=== PATIENT | female | born 2000 | race Caucasian/White ===

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

== ENCOUNTER 2022-04-20 20:18 | Emergency (ER) | payer BC, MEDICAID, SELFPAY ==
[2022-04-20 20:31] VITALS: BP 123/83; PULSE 99; RESP 16; TEMP 36.8; O2SAT 99; BMI 35.3
== END 2022-04-20 21:13 | disposition left against medical advice (07) ==
PROVIDERS: Emergency Provider Family Medicine; PCP Nurse Practitioner Family
DX: Z53.21 Procedure and treatment not carried out due to patient leaving prior to being seen by health care provider (principal); M79.631 Pain in right forearm

== ENCOUNTER 2022-08-06 22:56 | Emergency (ER) | payer BC, MEDICAID, SELFPAY ==
[2022-08-06 22:58] VITALS: BP 144/83; PULSE 109; RESP 18; TEMP 36.9; O2SAT 99; BMI 34.3
[2022-08-06] MEDS: sodium chloride 0.9% 1,000 ML 999 ML IV (23:10)
--- NOTE | 2022-08-06 23:15 | USR_ITS ---
PROCEDURE INFORMATION: Exam: US Abdomen, Limited; Right Upper Quadrant Exam date and time: 08/06/2022 11:26 PM Age: 22 years old Clinical indication: Abdominal pain; Epigastric; Additional info: Ruq pain TECHNIQUE: Imaging protocol: Real time ultrasound of the abdomen with image documentation. Limited exam focused on the right upper quadrant. COMPARISON: US OB >= 14 weeks fetus [id number] 12/31/2020 10:44 AM FINDINGS: Liver: 14.7 cm liver. Gallbladder: Normal 2.5 mm gallbladder wall. Sonographically negative Vargas's sign suggesting no cholecystitis. Biliary ducts: 2.6 mm common bile duct. Pancreas: Pancreas partially obscured by bowel gas. Right kidney: 10.3 x 4.3 x 4.8 cm right kidney with 1.6 cm right renal cortex. US/US gall bladder [id number] IMPRESSION: Normal gallbladder.
[2022-08-06 23:26] LABS: Basophils % 0.2 %; Eosinophils # 0.5 10^3/uL (0.0-0.8); Eosinophils % 3.1 %; Hematocrit 46.7 % (37.0-47.0); Lymphocytes # 3.2 10^3/uL (1.5-6.5); Lymphocytes % 22.5 %; Mean Corpuscular HGB Conc 32.1 g/dL (30.0-36.0); Mean Corpuscular Hemoglobin 29.2 pg (28.0-34.0); Mean Corpuscular Volume 90.9 fl (81-99); Mean Platelet Volume 9.5 fL (7.4-10.4); Monocytes # 0.6 10^3/uL (0.2-0.9); Neutrophils # 10.05 10^3/uL (1.8-8.0); Neutrophils % 69.9 %; Nucleated Red Blood Cells % 0 %; Platelet Count 408 10^3/cmm (130-400); Red Blood Count 5.14 10^6/uL (4.1-5.3); White Blood Count 14.4 10^3/uL (4.5-13.0)
[2022-08-06] MEDS: HYDROmorphone 1 mg/mL INJ 1 mL IVP (23:31)
[2022-08-06] MEDS: ketorolac 30 mg/mL INJ 15 MG IVP (23:32)
--- NOTE | 2022-08-06 23:33 | W.ED.ABDPA2 ---
HPI - Abdominal Pain General: Chief Complaint: Abdominal Pain Stated Complaint: ABD PAIN Time Seen by Provider: 08/06/22 23:03 Source: patient History of Present Illness: 22-year-old female presenting with around 5 hours of right upper quadrant pain radiating into her back. She has vomited multiple times. No fever. No diarrhea. She had this pain about a week ago she notes, but it went away on its own at that point. No prior belly surgeries. She states that she is not . In route by EMS she has had 1 mg of Dilaudid, 12.5 mg of promethazine, and 4 mg of Zofran. MD elicited complaint: abdominal pain Pertinent past history: none Onset (ago): hour(s) Pain Consistency: constant Location: RUQ Severity: severe Quality: stabbing and aching Radiation: back Associated Symptoms: Reports bloating, nausea and vomiting; Denies diarrhea, fever(s), hematemesis, loose stools and melena Treatments prior to arrival: other Related Data: Date of Last Menstrual Period: 08/05/22 Review of Systems Const: Denies: fever(s) Eyes: Denies: change in vision Card: Denies: chest pain or palpitations Resp: Denies: dyspnea, productive cough, non-productive cough or wheezing GI: Reports: abdominal pain, nausea, vomiting and bloating; Denies: hematemesis, diarrhea or melena : Denies: difficulty voiding Skin/Breast: Denies: rash Neuro: Denies: headache(s), weakness in extremities, dizziness or confusion PFS ED PFSH: Medical History Anxiety used to see Spurling and took several meds that never really worked for her. Asthma No pertinent past medical history neghx: htn,dm,thyroid,dvt/pe,herpes ---denies partner with herpes PCP: Polycystic ovarian syndrome Surgical History S/P tonsillectomy and adenoidectomy Family History Mother Hypertension Grandfather Hypertension Maternal Diabetes Maternal and Paternal Grandmother Hypertension Maternal Colon cancer Maternal dx age---50's Diabetes Maternal and Paternal Thyroid disease Paternal Father No problems noted. Denies family history of Ovarian cancer Heart disease Hypercholesteremia Breast cancer Uterine cancer Stroke Social History Smoking and tobacco status: current every day smoker cigarettes [ Other cigarette details: 1 cigarette/day] Alcohol intake: former Former alcohol use details: 07/31/2020 Other details last substance use: marijuana use daily prior to Female Reproductive History: Date of last menstrual period: 08/05/22 Physical Exam Const: GENERAL APPEARANCE: cooperative and ill appearing (Mildly); not comfortable and not frail appearing HENMT: COMMON NORMALS: normocephalic, atraumatic and Normal external nose present HEAD & SCALP: normocephalic and atraumatic FACE & SINUS: normal facial exam and face symmetric NOSE: Normal external nose present Eye: COMMON NORMALS: Equal, round and reactive pupils present and EOMs intact bilaterally PUPIL: Yes Equal, round and reactive pupils present Neck/C-Spine: GENERAL: Yes trachea midline Chest: CHEST: Yes Symmetrical chest wall rise Resp: COMMON NORMALS: normal respiratory effort, No retractions, No use of accessory muscles and clear to auscultation bilaterally AUSCULTATION: clear to auscultation bilaterally Cardio: COMMON NORMALS: regular rate and regular rhythm RATE: regular rate RHYTHM: regular rhythm GI: COMMON NORMALS: Normal to inspection, nondistended, normoactive bowel sounds present and Soft to palpation PALPATION: Yes Soft to palpation and Yes Tenderness to palpation present (GI) Details: RUQ Extremity: COMMON NORMALS: no pedal edema Neuro: BERONICA COMA SCALE: document GCS findings Eastern coma scale eye opening: Spontaneous Eastern coma scale verbal response: Orientated Eastern coma scale motor response: Obey commands Beronica coma scale total score: 15 SENSORY EXAM: Yes extremities (intact) Psych: COMMON NORMALS: speech normal SPEECH: Yes normal speech Skin: COMMON NORMALS: no rashes or lesions noted GENERAL SKIN EXAM: no rashes or lesions noted Course Vital Signs: Vital signs: Vital Signs Temperature 98.5 F 08/06/22 22:58 Pulse Rate 100 08/07/22 01:05 Respiratory Rate 16 08/07/22 01:05 Blood Pressure 118/76 08/07/22 01:05 Pulse Oximetry 99 08/07/22 01:05 Oxygen Delivery Me thod 08/06/22 22:58 MDM - Abdominal Pain Medical Decision Making Leukocytosis of 14. She is not . CRP is mildly elevated as well. Ultrasound the gallbladder is normal. Belly CT shows mild mesenteric lymphadenopathy. She will be treated symptomatically Lab Data 08/06/22 23:15 08/06/22 23:15 Labs/Radiology: Radiology Impressions Gallbladder Ultrasound 08/06/22 23:15 IMPRESSION: Normal gallbladder. Abdomen/Pelvis CT 08/06/22 23:57 IMPRESSION: Mild mesenteric lymphadenopathy most consistent with reactive process. Six-month follow-up exam may be helpful rule out worsening adenopathy. Laboratory Results WBC 14.4 10^3/uL (4.5-13.0) H 08/06/22 23:15 RBC 5.14 10^6/uL (4.1-5.3) 08/06/22 23:15 Hgb 15.0 g/dL (11.5-15.3) 08/06/22 23:15 Hct 46.7 % (37.0-47.0) 08/06/22 23:15 MCV 90.9 fl (81-99) 08/06/22 23:15 MCH 29.2 pg (28.0-34.0) 08/06/22 23:15 MCHC 32.1 g/dL (30.0-36.0) 08/06/22 23:15 RDW 13.0 % (12.1-15.1) 08/06/22 23:15 Plt Count 408 10^3/cmm (130-400) H 08/06/22 23:15 MPV 9.5 fL (7.4-10.4) 08/06/22 23:15 Neut % (Auto) 69.9 % 08/06/22 23:15 Lymph % (Auto) 22.5 % 08/06/22 23:15 [place] % (Auto) 4.0 % 08/06/22 23:15 Eos % (Auto) 3.1 % 08/06/22 23:15 Baso % (Auto) 0.2 % 08/06/22 23:15 Neut # (Auto) 10.05 10^3/uL (1.8-8.0) H 08/06/22 23:15 Lymph # (Auto) 3.2 10^3/uL (1.5-6.5) 08/06/22 23:15 [place] # (Auto) 0.6 10^3/uL (0.2-0.9) 08/06/22 23:15 Eos # (Auto) 0.5 10^3/uL (0.0-0.8) 08/06/22 23:15 Baso # (Auto) 0.0 10^3/uL (0.0-0.1) 08/06/22 23:15 Nucleated RBC % (auto) 0 % 08/06/22 23:15 Nucleated RBCs # 0.0 /100WBC 08/06/22 23:15 Sodium 138 mmol/L (136-145) 08/06/22 23:15 Potassium 3.4 mmol/L (3.5-5.1) L 08/06/22 23:15 Chloride 104 mmol/L (98-107) 08/06/22 23:15 Carbon Dioxide 22 mmol/L (22-29) 08/06/22 23:15 Anion Gap 15.4 (5-19) 08/06/22 23:15 BUN 6 mg/dL (6-20) 08/06/22 23:15 Creatinine 0.5 mg/dL (0.5-0.9) 08/06/22 23:15 GFR Calculation 157.3 mL/min (90-130) H 08/06/22 23:15 Glucose 102 mg/dL (65-115) 08/06/22 23:15 Calculated Osmolality 284 mOsm/kg (285-295) L 08/06/22 23:15 Calcium 8.4 mg/dL (8.5-10.5) L 08/06/22 23:15 Total Bilirubin 0.2 mg/dL (0.15-1.2) 08/06/22 23:15 AST 17 U/L (0-32) 08/06/22 23:15 ALT 24 U/L (0-33) 08/06/22 23:15 Alkaline Phosphatase 124 U/L (35-105) H 08/06/22 23:15 C-Reactive Protein 9.9 mg/L (0.0-4.9) H 08/06/22 23:15 Total Protein 6.9 g/dL (6.6-8.7) 08/06/22 23:15 Albumin 4.0 g/dL (3.5-5.2) 08/06/22 23:15 Globulin 2.9 g/dL (1.3-4.6) 08/06/22 23:15 Lipase 11 U/L (13-60) L 08/06/22 23:15 HCG, Qual Negative (Negative) 08/06/22 23:15 Discharge Plan Discharge Patient Disposition: Home Clinical Impression: Abdominal pain, Lymphadenopathy, mesenteric Condition: Stable Prescriptions: New hydrocodone-acetaminophen 5-325 mg tablet 1 tab PO Q8H PRN (Reason: pain) Qty: 7 0RF ondansetron 4 mg film 4 mg PO DAILY PRN (Reason: nausea and vomiting) Qty: 10 0RF No Action Gummy 400 mcg-35 mg -25 mg-5 mg tablet,chewable 1 tab PO DAILY albuterol sulfate [ProAir HFA] 90 mcg/actuation HFA aerosol inhaler 2 puff INHALATION Q6H PRN (Reason: shortness of breath or wheezing) 10 Days Qty: 6.7 0RF Discharge Orders: Discharge ED (Routine); Ordered 08/07/22 Ordered By: Melvin Markham Referrals: Betsy Chilel FNP-C [Primary Care Provider] - 1-3 days Patient Instructions: Abdominal Pain (ED), Mesenteric Adenitis (ED), Opioid Safety, Pain Management Activity Restrictions/Additional Instructions: Return for vomiting liquids despite treatment, worsening pain despite treatment, fever greater than 100, other concerning symptoms. Drink plenty of fluids for the next 48 hours. You might start with fluids only for the next 12 hours then advance to solid food if no vomiting. You may take ibuprofen alternating with pain medication as needed. You may find that it helps as much or more than pain medication. Coding Level of Care Code ED Make Ready Worker for Chg Fwd Exam Comprehensive
[2022-08-06 23:44] LABS: HCG, Serum Qual Negative (Negative)
[2022-08-06 23:46] LABS: Alanine Aminotransferase 24 U/L (0-33); Alkaline Phosphatase 124 U/L (35-105); Anion Gap 15.4 (5-19); Aspartate Amino Transferase 17 U/L (0-32); Blood Urea Nitrogen 6 mg/dL (6-20); C Reactive Protein 9.9 mg/L (0.0-4.9); Calcium 8.4 mg/dL (8.5-10.5); Carbon Dioxide 22 mmol/L (22-29); Chloride 104 mmol/L (98-107); Globulin 2.9 g/dL (1.3-4.6); Glomerular Filtration Rate 157.3 mL/min (90-130); Glucose 102 mg/dL (65-115); Lipase 11 U/L (13-60); Osmolality Calculated 284 mOsm/kg (285-295); Potassium 3.4 mmol/L (3.5-5.1); Sodium 138 mmol/L (136-145); Total Bilirubin 0.2 mg/dL (0.15-1.2); Total Protein 6.9 g/dL (6.6-8.7)
--- NOTE | 2022-08-06 23:57 | CTR_ITS ---
PROCEDURE INFORMATION: Exam: CT Abdomen And Pelvis With Contrast Exam date and time: 08/07/2022 12:14 AM Age: 22 years old Clinical indication: Abdominal pain; Localized; Right upper quadrant (ruq); Additional info: Ruq epigastric pain, leukocytosis TECHNIQUE: Imaging protocol: Computed tomography of the abdomen and pelvis with contrast. Radiation optimization: All CT scans at this facility use at least one of these dose optimization techniques: automated exposure control; mA and/or kV adjustment per patient size (includes targeted exams where dose is matched to clinical indication); or iterative reconstruction. Contrast material: OMNI 350; Contrast volume: 100 ml; Contrast route: INTRAVENOUS (IV); COMPARISON: US gall bladder [id number] 08/06/2022 11:26 PM RADIATION DOSE METRICS: Total DLP (mGy-cm): 885.41 FINDINGS: Liver: Normal. No mass. Gallbladder and bile ducts: Normal. No calcified stones. No ductal dilation. Pancreas: Normal. No ductal dilation. Spleen: Normal. No splenomegaly. Adrenal glands: Normal. No mass. Kidneys and ureters: Normal. No hydronephrosis. Stomach and bowel: Unremarkable. No obstruction. No mucosal thickening. Appendix: No evidence of appendicitis. Intraperitoneal space: Unremarkable. No free air. No significant fluid collection. Vasculature: Unremarkable. No abdominal aortic aneurysm. Lymph nodes: Mild mesenteric lymphadenopathy most consistent with reactive process. Six-month follow-up exam may be helpful rule out worsening adenopathy. Urinary bladder: Unremarkable as visualized. Reproductive: Unremarkable as visualized. Bones/joints: Unremarkable. No acute fracture. Soft tissues: Unremarkable. CT/CT abdomen pelvis w con* [id number] IMPRESSION: Mild mesenteric lymphadenopathy most consistent with reactive process. Six-month follow-up exam may be helpful rule out worsening adenopathy.
[2022-08-07] MEDS: iohexol 350 mg/mL 500 mL Btl (per mL) IV (00:25)
[2022-08-07 01:05] VITALS: BP 118/76; PULSE 100; RESP 16; O2SAT 99
== END 2022-08-07 01:06 | disposition home or self-care (01) ==
PROVIDERS: Emergency Provider Emergency Medicine; PCP Nurse Practitioner Family
DX: R59.1 Generalized enlarged lymph nodes (principal); F17.210 Nicotine dependence, cigarettes, uncomplicated
CPT/HCPCS: 74177; 76705; 80053; 83690; 84703; 85025; 86140; 96361; 96374; 96375; 99285; J1170; J1885; J7030; Q9967

== ENCOUNTER 2022-09-24 20:37 | Emergency (ER) | payer BC, MEDICAID, SELFPAY ==
[2022-09-24 20:42] VITALS: BP 158/103; PULSE 87; RESP 16; TEMP 36.4; O2SAT 99; BMI 34.3
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
[2022-09-24] MEDS: morphine 4 mg/mL SDV 1 mL IVP (20:58)
== END 2022-09-24 22:30 | disposition home or self-care (01) ==
PROVIDERS: Emergency Provider Emergency Medicine; PCP Nurse Practitioner Family
DX: S87.82XA Crushing injury of left lower leg, initial encounter (principal); V03.00XA Pedestrian on foot injured in collision with car, pick-up truck or van in nontraffic accident, initial encounter; F17.210 Nicotine dependence, cigarettes, uncomplicated
CPT/HCPCS: 73552; 73590; 73610; 73630; 96374; 99284; E0114; J2270

== ENCOUNTER 2023-10-23 21:35 | Outpatient (CLI) | payer BC, MEDICAID, SELFPAY ==
[2023-10-23 21:58] VITALS: BP 133/69; PULSE 111
--- NOTE | 2023-10-23 22:05 | USR_ITS ---
PROCEDURE INFORMATION: Exam: US , Limited Exam date and time: 10/23/2023 10:18 PM Age: 23 years old Clinical indication: complicated by abdominal or pelvic pain; Generalized abdominal pain; Second trimester (14 weeks 0 days to 27 weeks 6 days); Gestational age or lmp: 27w 4 d by lmp; ; Patient HX: G2-p1-a0-l1 first vaginal , presenting with cramping, no vaginal bleeding x 5 hours. ; Additional info: Rule out abruption LABS AND CLINICAL REPORTS: Last menstrual period start date: 04/12/2023 Gestational age (Established): 27 w 4 d Estimated due date (Established): 01/18/2024 TECHNIQUE: Imaging protocol: Real-time ultrasound of the maternal uterus with image documentation. Exam focused on the clinical indication. COMPARISON: [place] [id number] 10/10/2023 2:16 PM FINDINGS: Gestation: There is a single living intrauterine . heart rate: 163 bpm presentation: Breech Placenta: Right-sided, grade 1 without previa. No abruption. Amniotic fluid: Amniotic fluid volume is normal. Amniotic fluid index: SANDER is 14.69 cm. BIOMETRY: Gestational age (AUA): 28 w 6 d Estimated due date (AUA): 01/09/2024 Estimated weight: 1180.99 g. EFW by AC, BPD, FL, HC, Hadlock 1985 (60%) Biparietal diameter (BPD): 7.75 cm. EGA (BPD) is 31 w 1 d. 97 % percentile Head circumference (HC): 26.24 cm. EGA (HC) is 28 w 4 d. 51.9 % percentile Abdominal circumference (AC): 22.99 cm. EGA (AC) is 27 w 2 d. 35.1 % percentile Femur length (FL): 5.41 cm. EGA (FL) is 28 w 4 d. 67 % percentile Cephalic Index (CI): 91.5. (Normal range: 70 - 86) HC/AC: 1.14. (Normal range: 0.99 - 1.21) FL/HC: 20.62. (Normal range: 19.49 - 20.77) FL/BPD: 69.81. (Normal range: 71 - 87) FL/AC: 23.53. (Normal range: 20 - 24) MATERNAL: Cervix: Cervical length measures 4.6 cm. US/ OB limited [id number] IMPRESSION: There is a single living intrauterine with an estimated gestational age of 28 weeks and 6 days. The SOURAV is 01/09/24.
[2023-10-23 22:13] VITALS: BP 124/58; PULSE 103
[2023-10-23 22:22] VITALS: BMI 39.8
[2023-10-23 22:26] LABS: Nitrazine Paper, PH Inconclusive
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
[2023-10-23 22:49] VITALS: BP 138/74; PULSE 97
[2023-10-23 23:36] LABS: Actim Prom Negative
[2023-10-23 23:54] VITALS: BP 115/56; PULSE 101
[2023-10-24 00:09] VITALS: BP 148/70; PULSE 96
[2023-10-24 00:23] VITALS: BP 134/67; PULSE 100
[2023-10-24 00:33] VITALS: BP 134/67; PULSE 100; RESP 16
== END 2023-10-24 00:45 | disposition home or self-care (01) ==
LOC: OPOB 21:44 → OBGYN 21:50
PROVIDERS: PCP Nurse Practitioner Family; Visit Provider Family Medicine
DX: O26.899 Other specified pregnancy related conditions, unspecified trimester (principal); Z3A.00 Weeks of gestation of pregnancy not specified; R10.9 Unspecified abdominal pain; M54.9 Dorsalgia, unspecified
CPT/HCPCS: 76815; 83986; 84112; 99211

== ENCOUNTER 2023-12-20 13:00 | Outpatient (CLI) | payer BC, MEDICAID, SELFPAY ==
[2023-12-20] VITALS (11 sets, daily range): BP systolic 116–153; BP diastolic 61–93; PULSE 66–78; RESP 16; TEMP 36.6; BMI 40.0
[2023-12-20 13:55] LABS: Basophils # 0.1 10^3/uL (0.0-0.1); Basophils % 0.5 %; Eosinophils # 0.4 10^3/uL (0.0-0.8); Eosinophils % 3.1 %; Hematocrit 35.5 % (36-47); Lymphocytes # 2.4 10^3/uL (0.8-4.8); Mean Corpuscular HGB Conc 33.2 g/dL (30-55); Mean Corpuscular Volume 90.3 fl (85-98); Mean Platelet Volume 11.4 fL (7.4-10.4); Monocytes # 0.7 10^3/uL (0.2-0.9); Neutrophils % 72.8 %; Nucleated Red Blood Cells % 0 %; Platelet Count 306 10^3/cmm (157-399); Red Blood Count 3.93 10^6/uL (3.85-5.65); Red Cell Distribution Width 13.1 % (12.1-15.1); White Blood Count 13.48 10^3/uL (3.29-11.43)
[2023-12-20 14:14] LABS: Uric Acid 7.1 mg/dL (2.4-5.7)
[2023-12-20 14:15] LABS: Urine Creatinine 94 mg/dL (28-217); Urine Protein Random 15 mg/dL
[2023-12-20 14:17] LABS: UPRO/UCREAT Ratio 0.16 mg/mg CR
[2023-12-20 14:29] LABS: Urine Appearance Cloudy (CLEAR); Urine Color Yellow (Yellow); pH Urine 6 (5-7)
[2023-12-20 14:30] LABS: Add Urine Microscopic? YES; Bilirubin Urine Neg (Negative); Blood Urine Neg (Negative); Glucose Urine UA Norm (Normal); Ketones Urine Negative (Negative); Leukocyte Esterase Urine 2+ (Negative); Nitrate Urine Negative (Negative); Protein Urine Neg (Negative); Urobilinogen Urine Norm (Negative)
[2023-12-20 14:31] LABS: Bacteria Urine 2+ /hpf; RBC Urine 0-4 /hpf (0-2); Squamous Epithelial Cell Urine 40-55 /hpf (0-5); WBC Urine 80-100 /hpf (0-5)
[2023-12-20 14:33] LABS: Add Urine Culture? No
== END 2023-12-20 16:00 | disposition home or self-care (01) ==
LOC: OPOB 13:04 → OBGYN 13:05
PROVIDERS: PCP Nurse Practitioner Family; Visit Provider Family Medicine
DX: O16.9 Unspecified maternal hypertension, unspecified trimester (principal); Z3A.00 Weeks of gestation of pregnancy not specified; R60.9 Edema, unspecified
CPT/HCPCS: 36415; 59025; 81001; 82570; 84156; 84550; 85025; 99211

== ENCOUNTER 2023-12-31 11:33 | Outpatient (CLI) | payer BC, MEDICAID, SELFPAY ==
[2023-12-31 11:55] VITALS: BP 126/77; PULSE 133
[2023-12-31 12:22] VITALS: BP 179/95; PULSE 99
[2023-12-31 12:25] VITALS: BP 135/67; PULSE 99
[2023-12-31 12:41] VITALS: BP 139/82; PULSE 103
[2023-12-31 18:03] LABS: Nitrazine Paper, PH Negative
== END 2023-12-31 12:56 | disposition home or self-care (01) ==
LOC: OPOB 11:44 → OBGYN 11:45
PROVIDERS: PCP Nurse Practitioner Family; Visit Provider Family Medicine
DX: O24.419 Gestational diabetes mellitus in pregnancy, unspecified control (principal); Z3A.00 Weeks of gestation of pregnancy not specified
CPT/HCPCS: 59025; 83986; 99211

== ENCOUNTER 2024-01-04 13:51 | Outpatient (CLI) | payer BC, MEDICAID, SELFPAY ==
[2024-01-04 14:00] VITALS: BMI 42.1
[2024-01-04 14:04] VITALS: BP 114/69; PULSE 105
--- NOTE | 2024-01-04 14:08 | US_ITS ---
WS: [id number] ULTRASOUND OB FOCUSED HISTORY: CHECK SANDER ONLY COMPARISON: 10/23/2023 Single intrauterine gestation in vertex presentation. Cervix is closed at 3.9 cm. Placenta is anterio r and grade 1. No previa or abruption. heart rate at 130 BPM. Amniotic fluid index: 11.0 cm. US/US OB limited [id number] IMPRESSION: Normal amniotic fluid index.
[2024-01-04 14:26] VITALS: BP 161/82; PULSE 90
[2024-01-04 15:00] VITALS: BP 161/82; PULSE 90; RESP 18
== END 2024-01-04 15:00 | disposition home or self-care (01) ==
LOC: OPOB 13:58 → OBGYN 13:59
PROVIDERS: PCP Nurse Practitioner Family; Visit Provider Family Medicine
DX: O24.419 Gestational diabetes mellitus in pregnancy, unspecified control (principal); Z3A.00 Weeks of gestation of pregnancy not specified
CPT/HCPCS: 59025; 76815; 99211

== ENCOUNTER 2024-01-09 06:30 | Inpatient (IN) | payer BC, MEDICAID, SELFPAY ==
[2024-01-09] VITALS (85 sets, daily range): BP systolic 81–154; BP diastolic 43–121; PULSE 74–125; TEMP 36.1–36.9; BMI 42.1
[2024-01-09] MEDS: ampicillin 2,000 MG in sodium chloride 0.9% (plus) 50 ML 100 MG IV (07:32)
[2024-01-09] MEDS: dextrose 5%-lactated ringers 1,000 ML 125 ML IV ×2 (07:33→18:43)
[2024-01-09] MEDS: oxytocin 30 UNIT/500 ML BAG IV (07:33)
[2024-01-09 07:39] LABS: Basophils # 0.1 10^3/uL (0.0-0.1); Basophils % 0.5 %; Eosinophils # 0.5 10^3/uL (0.0-0.8); Hematocrit 36.4 % (36-47); Lymphocytes # 3.3 10^3/uL (0.8-4.8); Lymphocytes % 25.4 %; Mean Corpuscular HGB Conc 33.5 g/dL (30-55); Mean Corpuscular Hemoglobin 29.3 pg (27-33); Mean Corpuscular Volume 87.3 fl (85-98); Mean Platelet Volume 11.8 fL (7.4-10.4); Monocytes # 0.6 10^3/uL (0.2-0.9); Monocytes % 4.6 %; Neutrophils # 8.38 10^3/uL (1.8-7.7); Nucleated Red Blood Cells % 0 %; Platelet Count 346 10^3/cmm (157-399); Red Blood Count 4.17 10^6/uL (3.85-5.65); White Blood Count 12.89 10^3/uL (3.29-11.43)
[2024-01-09 07:46] LABS: Glucose Point of Care 84 mg/dL (70-110)
[2024-01-09 08:40] LABS: Amphetamines Screen Urine Negative (Negative); Barbiturates Screen Urine Negative (Negative); Benzodiazepines Screen Urine Negative (Negative); Cocaine Screen Urine Negative (Negative); Opiate Screen Urine Negative (Negative); PCP Screen Urine Negative (Negative); THC Screen Urine Negative (Negative)
[2024-01-09] MEDS: calcium carbonate 500 mg Chew Tablet 1000 MG PO (08:44)
[2024-01-09] MEDS: lactated ringers 1,000 ML 999 ML IV ×2 (09:24→10:22)
[2024-01-09] MEDS: ROPivacaine syringe 100 MG/50 ML SYRINGE 10 MG EPIDURAL ×4 (10:22→19:44)
--- NOTE | 2024-01-09 10:39 | P.ANESASSM_ITS ---
Pre-Anesthetic Assessment Height/Weight: Height 1.6 m Weight 107.955 kg Temp Pulse BP O2 Del Method 97.0 F L 110 H 108/57 Room Air 01/09/24 06:44 01/09/24 10:36 01/09/24 10:36 01/09/24 07:34 Familial anesthetic complications: none Was Beta Ben taken within 24 hours: N/A Was Clonidine taken within 24 hours: N/A Social No alcohol and No tobacco Exam alert, oriented x 3, clear to auscultation bilaterally and regular rate & rhythm Airway Submandibular: within normal limits Cervical ROM: within normal limits Mallampati: Class II Metabolic Diabetes Mellitus and Morbid Obesity Anesthetic Plan ASA status: 2 Anesthesia: Regional (specify below) (Labor epidural) Medications/Allergies Home Medications Medication Instructions Recorded Confirmed Last Taken Type [id number] 400 mcg-om3 35 mg-dha 25 1 tab PO DAILY 10/01/20 01/09/24 01/08/24 21:00 History mg-epa 5 mg-fish oil chewable tablet ( Gummy) metformin 500 mg tablet 750 mg PO DAILY 12/31/23 01/09/24 01/08/24 08:00 History Allergies Allergy/AdvReac Type Severity Reaction Status Date / Time No Known Allergies Allergy Verified 12/31/23 13:03 Current Medications Generic Name Dose Route Start Last Admin Trade Name Brendan PRN Reason Stop Dose Admin Calcium Carbonate 1,000 mg 01/09/24 06:49 01/09/24 08:44 Calcium Carbonate 500 Mg Chew Tablet PO 1,000 mg Q4H PRN Administration Heartburn/Indigestion (Use 1st) Dextrose/Lactated Ringer's 1,000 mls @ 125 mls/hr 01/09/24 07:00 01/09/24 09:23 Dextrose 5%-Lactated Ringers IV 0 mls/hr .Q8H VILMA Infusion Oxytocin 30 unit in 500 mls @ 1 mls/hr 01/09/24 07:15 01/09/24 09:26 Pitocin IV 14 milliunit/min .Q24H VILMA 14 mls/hr Titration Protocol 1 MILLIUNIT/MIN Lactated Ringer's 1,000 mls @ 999 mls/hr 01/09/24 09:12 01/09/24 10:22 Lactated Ringers IV 999 mls/hr .Q1H1M PRN Administration See label comments Ropivacaine 100 mg in 50 mls @ 10 mls/hr 01/09/24 09:12 01/09/24 10:22 Naropin Syringe EPIDURAL 10 mls/hr .Q5H PRN Administration LABOR INDUCTION PFSH Anesthesia Medical History Anxiety used to see [facility] and took several meds that never really worked for her. Asthma No pertinent past medical history neghx: htn,dm,thyroid,dvt/pe,herpes ---denies partner with herpes PCP: Polycystic ovarian syndrome Surgical History S/P tonsillectomy and adenoidectomy Family History Mother Hypertension Grandfather Hypertension Maternal Diabetes Maternal and Paternal Grandmother Hypertension Maternal Colon cancer Maternal dx age---50's Diabetes Maternal and Paternal Thyroid disease Paternal Father No problems noted. Denies family history of Ovarian cancer Heart disease Hypercholesteremia Breast cancer Uterine cancer Stroke Social History Smoking and tobacco/nicotine status: current every day tobacco/nicotine user cigarettes [ Other cigarette details: 1 cigarette/day] Alcohol intake: former Former alcohol use details: 07/31/2020 Substance/Drug Use: former Female Reproductive History : 3 Data Anesthesia 01/09/24 07:00 Short CBC 01/09/24 Range/Units 07:00 WBC 12.89 H (3.29-11.43) 10^3/uL Hgb 12.20 (11.27-16.99) g/dL Hct 36.4 (36-47) % MCV 87.3 (85-98) fl Plt Count 346 (157-399) 10^3/cmm Neut % (Auto) 65.0 % Neut # (Auto) 8.38 H (1.8-7.7) 10^3/uL Blood Bank 01/09/24 01/09/24 07:00 08:07 Blood Type Cancelled O Positive Rho(D) Type Cancelled Rh positive Antibody Screen Cancelled Negative Cardiac Studies: 2 No Data to Display Anesthesia Procedures Epidural Time Out Performed: Yes Consents Signed: Procedure Consent Consent: requested by attending/covering physician, from patient, risks and benefits reviewed and patient agrees to proceed Lumbar Level: L3-L4 Epidural position: sitting Epidural procedure: sterile prep of area, 1% lidocaine to numb the area, neg for paresthesia, test dose given, 1.5% xylocaine 1:200k epi, placed PCEA, no systemic response, sterile dressing applied and 0.2% Ropiavacaine @ mls/hr (10) Additional Comments: LUIS at 8cm, cath to 13cm, bolused 5mls 2% lido
[2024-01-09] MEDS: ampicillin 1,000 MG in sodium chloride 0.9% (plus) 50 ML 100 MG IV ×4 (11:17→22:39)
[2024-01-09 13:33] LABS: Glucose Point of Care 80 mg/dL (70-110)
[2024-01-09 20:18] LABS: Glucose Point of Care 72 mg/dL (70-110)
--- NOTE | 2024-01-09 20:59 | P.ANES_ITS ---
Anesthesia Procedures Procedure/Date: 01/09/24 OPTICAL MANUFACTURING TECHNICIAN at bedside 2054. assessed and discussed epidural and pain with patient. determined that epidural is still correctly placed. decision made to increase maintenance does of epidural pump to 13mL/hr and give bolus. bolus of 3cc 0.25%bupivacaine and 100mcg fentanyl give at 2058. patient stated pain has subsided.
[2024-01-09 22:44] LABS: Glucose Point of Care 88 mg/dL (70-110)
[2024-01-09] MEDS: oxytocin 30 UNIT/500 ML BAG 600 UNIT IV (23:32)
--- NOTE | 2024-01-09 23:44 | PM.OPHPUD ---
Labor & Delivery H&P Update Date of Procedure: January 09, 2024 Date H&P Performed: 01/04/24 Admission Diagnosis: IUP at 39 weeks gestation Planned procedure: Planned induction of labor and delivery.
--- NOTE | 2024-01-09 23:45 | P.PCNOB_ITS ---
Delivery Note: Date of delivery: January 09, 2024 Pre-delivery diagnoses: IUP at 39 weeks gestation Gestational diabetes mellitus controlled on metformin Group B strep carrier Delivery: The patient had routine care at [facility]. She had gestational diabetes mellitus that was controlled on metformin 750 mg daily. labs: Blood type O+ antibody negative, hepatitis B nonreactive, he patitis C nonreactive, HIV nonreactive, rubella immune, GC chlamydia negative, UDS positive for marijuana, Q low risk, she failed her 3-hour glucose tolerance and was diagnosed with gestational diabetes mellitus. She was GBS positive. Post-Delivery Status: This is a 23-year-old G 3P1 at 39 weeks 0 days gestation who is here for an ind uction secondary to gestational diabetes mellitus and patient preference. She was GBS positive and received 4 doses of ampicillin prior to delivery. She was started on high-dose Pitocin and received an epidural for pain management. When she was 6 cm dilated she had spontaneous rupture of membranes with clear fluid. There were some short deep variables off and on after rupture of membranes that would improve with position changes. The Pitocin was stopped but she continued to contract regularly on her own. heart tones had good variability. She progressed nicely and only had to push through 2 contractions to have a normal spontaneous vaginal delivery of a viable male infant weight 3140 g, 6 pounds 15 ounces, Apgars 8 and 9 over an intact perineum. The was suctioned at delivery and placed on the mother's chest. The cord was clamped and cut. The placenta was delivered grossly intact and normal to inspection. There were no lacerations. Mother and infant were doing well after delivery. History History History 2 Term 0 0 Miscarriages/Ectopic 1 Living Children 0 Coding Level of Care Code Acute Code for Chg Fwd
[2024-01-10] VITALS (13 sets, daily range): BP systolic 125–149; BP diastolic 72–96; PULSE 65–91; RESP 14–18; TEMP 36.4–37; O2SAT 97–99
[2024-01-10] MEDS: ibuprofen 800 mg tablet PO ×4 (00:54→20:21)
[2024-01-10] MEDS: benzocaine-menthol 78 gm Canister 1 SPRAY TOPICAL (00:58)
[2024-01-10] MEDS: acetaminophen 325 mg Tablet 650 MG PO (02:33)
[2024-01-10] MEDS: docusate sodium 100 mg Capsule PO ×2 (08:26→19:08)
[2024-01-10] MEDS: PRENATAL VIT NO.130/IRON/FOLIC 1 EACH TABLET PO (08:26)
[2024-01-10 11:13] LABS: Hematocrit 35.1 % (36-47); Mean Corpuscular HGB Conc 32.8 g/dL (30-55); Mean Corpuscular Hemoglobin 29.3 pg (27-33); Mean Corpuscular Volume 89.5 fl (85-98); Mean Platelet Volume 11.6 fL (7.4-10.4); Platelet Count 284 10^3/cmm (157-399); Red Blood Count 3.92 10^6/uL (3.85-5.65); Red Cell Distribution Width 13.2 % (12.1-15.1); White Blood Count 15.53 10^3/uL (3.29-11.43)
--- NOTE | 2024-01-10 12:04 | P.PN_ITS ---
Subjective 2 Subjective: day 0-1. Doing well. She is ambulating and tolerating a regular diet. She does have lower extremity edema. Her bleeding is about average. Vitals/I&O/Wt Last Vital Signs Temp 97.9 F 01/10/24 10:50 Pulse 69 01/10/24 10:50 Resp 18 01/10/24 10:50 BP 141/94 01/10/24 10:50 Pulse Ox 99 01/10/24 10:50 O2 Del Method Room Air 01/10/24 10:50 01/09/24 01/10/24 01/10/24 22:59 06:59 14:59 Intake Total 1165.930 / 3563.265 1852.435 / 5415.700 Output Total 450 / 450 300 / 750 Balance 715.930 / 3113.265 1552.435 / 4665.700 Weight last 48 hrs Weight 107.955 kg Physical Exam 2 Narrative: Resting in bed, heart regular rate and rhythm, lungs clear to auscultation bilaterally, abdomen is soft and nontender, fundus is firm, extremities have 2+ edema but no calf tenderness Urinary Catheter Management: Esquivel: Cath Placed During This Visit: yes, but has since been removed by the nurse Reason for Continuing Indwelling Catheter: Decision to DC Catheter Urinary Catheter Date of Insertion: 01/09/24 Urinary Catheter Time of Insertion: 10:50 Date Urinary Catheter Removed: 01/09/24 Time Urinary Catheter Discontinued: 23:25 Data 01/10/24 11:00 A&P Assessment and plan (1) (normal spontaneous vaginal delivery): Routine care. Likely discharge home tomorrow Attestations 2 Medical Necessity Statement*: Routine care Coding Level of Care Code Acute Code for Chg Fwd Diagnoses (normal spontaneous vaginal delivery) O80
--- NOTE | 2024-01-10 12:04 | ANE.PACU2 ---
Inpatient post-anesthesia follow up: Airway intact: Yes Vital signs: Temperature 97.9 F Pulse Rate 69 Respiratory Rate 18 Blood Pressure 141/94 Pulse Oximetry 99 Oxygen Delivery Me thod Room Air Oxygen Flow Rate Fraction of Inspir ed Oxygen Hydration adequate: Yes Nausea and vomiting: No Pain level: 2 Mental status: Baseline Epidural Start/End: Epidural Start Date: 01/09/24 Epidural Start Time: 10:00 Epidural End Date: 01/10/24 Epidural End Time: 01:25
[2024-01-11] MEDS: calcium carbonate 500 mg Chew Tablet 1000 MG PO (01:04)
[2024-01-11 06:27] VITALS: BP 130/76; PULSE 66; RESP 14; TEMP 36.6; TEMP 36.7; O2SAT 98
[2024-01-11] MEDS: docusate sodium 100 mg Capsule PO (08:53)
[2024-01-11] MEDS: PRENATAL VIT NO.130/IRON/FOLIC 1 EACH TABLET PO (08:54)
[2024-01-11] MEDS: ibuprofen 800 mg tablet PO (08:54)
[2024-01-11 09:11] VITALS: BP 144/87; PULSE 88; RESP 16; TEMP 36.6; TEMP 36.7; O2SAT 98
--- NOTE | 2024-01-11 11:33 | P.DS_ITS ---
Discharge Providers Date of Admission: 01/09/24 06:30 Date of Discharge: January 11, 2024 Attending Provider at Admission: Margaux Shaw MD Attending Provider at Discharge: Margaux Shaw MD Primary Care Provider: Margaux Shaw MD Diagnoses at Discharge Discharge Diagnosis (1) (normal spontaneous vaginal delivery): Status: Acute Reason for Visit Reason for Visit: Induction Hospital Course Hospital Course This is a 23-year-old G3 now P2 who had a normal spontaneous vaginal delivery of a viable male . She has done well . She is ambulating, tolerating a regular diet, has average vaginal bleeding. Physical Exam Narrative: Alert and oriented, sitting up in bed, heart regular rate and rhythm, lungs clear to auscultation bilaterally, abdomen is soft and nontender, fundus is firm, extremities have 2+ edema but no calf tenderness Urinary Catheter Management: Esquivel: Cath Placed During This Visit: yes, but has since been removed by the nurse Reason for Continuing Indwelling Catheter: Decision to DC Catheter Urinary Catheter Date of Insertion: 01/09/24 Urinary Catheter Time of Insertion: 10:50 Date Urinary Catheter Removed: 01/09/24 Time Urinary Catheter Discontinued: 23:25 Discharge Data Studies Completed and Pending Laboratory Results WBC 15.53 10^3/uL (3.29-11.43) H 01/10/24 11:00 RBC 3.92 10^6/uL (3.85-5.65) 01/10/24 11:00 Hgb 11.50 g/dL (11.27-16.99) 01/10/24 11:00 Hct 35.1 % (36-47) L 01/10/24 11:00 MCV 89.5 fl (85-98) 01/10/24 11:00 MCH 29.3 pg (27-33) 01/10/24 11:00 MCHC 32.8 g/dL (30-55) 01/10/24 11:00 RDW 13.2 % (12.1-15.1) 01/10/24 11:00 Plt Count 284 10^3/cmm (157-399) 01/10/24 11:00 MPV 11.6 fL (7.4-10.4) H 01/10/24 11:00 Neut % (Auto) 65.0 % 01/09/24 07:00 Lymph % (Auto) 25.4 % 01/09/24 07:00 [place] % (Auto) 4.6 % 01/09/24 07:00 Eos % (Auto) 4.0 % 01/09/24 07:00 Baso % (Auto) 0.5 % 01/09/24 07:00 Neut # (Auto) 8.38 10^3/uL (1.8-7.7) H 01/09/24 07:00 Lymph # (Auto) 3.3 10^3/uL (0.8-4.8) 01/09/24 07:00 [place] # (Auto) 0.6 10^3/uL (0.2-0.9) 01/09/24 07:00 Eos # (Auto) 0.5 10^3/uL (0.0-0.8) 01/09/24 07:00 Baso # (Auto) 0.1 10^3/uL (0.0-0.1) 01/09/24 07:00 Nucleated RBC % (auto) 0 % 01/09/24 07:00 Nucleated RBCs # 0.0 /100WBC 01/09/24 07:00 POC Glucose 88 mg/dL (70-110) 01/09/24 22:35 Urine Opiates Screen Negative ng/mL (Negative) 01/09/24 08:06 Ur Barbiturates Screen Negative ng/mL (Negative) 01/09/24 08:06 Ur Phencyclidine Scrn Negative ng/mL (Negative) 01/09/24 08:06 Ur Amphetamines Screen Negative ng/mL (Negative) 01/09/24 08:06 U Benzodiazepines Scrn Negative ng/mL (Negative) 01/09/24 08:06 Urine Cocaine Screen Negative ng/mL (Negative) 01/09/24 08:06 U Marijuana (THC) Screen Negative ng/mL (Negative) 01/09/24 08:06 Blood Type O Positive 01/09/24 08:07 Rho(D) Type Rh positive 01/09/24 08:07 Antibody Screen Negative 01/09/24 08:07 Vitals Last Vital Signs Temp 98.0 F 01/11/24 09:11 Pulse 88 01/11/24 09:11 Resp 16 01/11/24 09:11 BP 144/87 01/11/24 09:11 Pulse Ox 98 01/11/24 09:11 O2 Del Method Room Air 01/11/24 09:11 Discharge Plan Discharge Patient Disposition: Home Condition: Stable Prescriptions: Continued Gummy 400 mcg-35 mg -25 mg-5 mg tablet,chewable 1 tab PO DAILY Discontinued metformin 500 mg Tablet 750 mg PO DAILY Referrals: Margaux Shaw MD [Primary Care Provider] - 1 month Discharge Diet: Usual diet Discharge Activity: Limit activity as instructed Patient Instructions: Depression (GEN), Preeclampsia and Eclampsia After Delivery (GEN), Hemorrhage (DC), OB Discharge Report, OB Food/Drug Interaction Guide, Opioid Safety, OB Home Care, OB Vaginal Deliveries, Abnormal Bleeding Activity Restrictions/Additional Instructions: Nothing per vagina for 6 weeks Discharge Attestations Time Spent in Discharge Care*: less than 30 min Quality Metrics Clinical Quality Measures [ No reported AMI, CVA or VTE this stay] Coding Level of Care Code Acute Code for Chg Fwd Diagnoses (normal spontaneous vaginal delivery) O80
[2024-01-11 12:40] VITALS: BP 150/101; PULSE 68; RESP 16; TEMP 36.8; O2SAT 98
[2024-01-11 12:50] VITALS: BP 150/101; PULSE 68; RESP 16; TEMP 36.8; O2SAT 98
== END 2024-01-11 13:00 | disposition home or self-care (01) | DRG 807 ==
PROVIDERS: Admitting Provider Family Medicine; PCP Family Medicine; Visit Provider Family Medicine
DX: O24.425 Gestational diabetes mellitus in childbirth, controlled by oral hypoglycemic drugs (principal); Z37.0 Single live birth; O99.824 Streptococcus B carrier state complicating childbirth; O99.334 Smoking (tobacco) complicating childbirth; F17.200 Nicotine dependence, unspecified, uncomplicated; O99.344 Other mental disorders complicating childbirth; F41.9 Anxiety disorder, unspecified; Z3A.39 39 weeks gestation of pregnancy
CPT/HCPCS: 36415; 36416; 51702; 59025; 59409; 80306; 82962; 85025; 85027; 86850; 86900; J0290; J2590; J2795; J3010; J3490; J7120; J7121

== ENCOUNTER 2025-02-07 19:25 | Emergency (ER) | payer MEDICAID, SELFPAY ==
--- OUTSIDE RECORDS SUMMARY | 2018-07-20 08:32 | XMS_ITS | Continuity of Care Document ---
Author Organization [facility]. Address [address] et [address] [place] [address] Phone Care Team Providers Care Manager Net Name Role Phone Unavailable Unavailable Unavailable Advance Directives Directive Yes / No Effective Date File Name No Information Encounters Encounter Description Practice Location Reason(s) For Visit Diagnoses Date Provider Providers Copied on Encounter [facility]., [address] [facility], [place], [address], tel:[phone] [facility] No Information 8 No Information Referring Provider: MONET Camacho, [facility], [place], [address]. tel:[phone] Family History Family Member Type Diagnosis Age At Onset Problem (finding) No family hist ory of Cardiomyopathy - dilated Problem (finding) No family hist ory of Congenital Heart Disease Problem (finding) No family hist ory of Cardiomyopathy - hypertrophic Problem (finding) No family history of Ar rhythmia Problem (finding) No family history of Hy pertension Problem (finding) No family history of Nogueira dden Problem (finding) No family history of Di abetes Mellitus Problem (finding) No family history of Pr emature CAD Payers Payer name Insurance type Covered republican ID Authoriza tion(s) [facility] [id number] Social History Type Description Quantity Date Captured Comments Alcohol Use Details Unknown Caffeine Use Details Unknown Tobacco Use Status No Information Smoking Status No Information Sex Female Vital Signs Date / Time: Height Weight BMI Pulse Rate Blood Pressure Temperature Respiratory Rate Body Surface Area Head Circumference BMI percentile Pulse Ox Inhaled Ox 2:34 PM 64.00 in 79.832 kg (176.00 lbs) 30.3 0 kg/m eter (2) 20 /min 1.90 meter(2) 96 Chief Complaint And Reason For Visit No Information History Of Present Illness Encounter Date Complaint History Of Prese nt Illness No Information Instructions Date Instruction Additional Infor mation No Information Assessments Type Assessment Date No Information
--- OUTSIDE RECORDS SUMMARY | 2019-11-18 10:09 | XMS_ITS | Continuity of Care Document ---
Author Organization [facility] Address [id number] [address] Phone Care Team Providers Care Plate Cleaner Name Role Phone Andrea OD, Mateo Unavailable Unavailable Allergies, Adverse Reactions, Alerts Substance Reaction Status Criticality No Known Allergies Active No Inform ation Procedures Procedure Date Vision svcs frames purchases Spherocylindr 4.00d/12-2.00d Lens polycarb or equal, Single Vision, P er Lens Lens polycarb or equal, Single Vision, P er Lens FITTING OF SPECTACLES REFRACTION Eye Exam New Patient Advance Directives Directive Yes / No Effective Date File Name No Information Encounters Encounter Description Practice Location Reason(s) For Visit Diagnoses Date Provider Providers Copied on Encounter [facility], [id number] [place], [place], [id number], [place] tel:[phone] Vision F1 Encounter for fit/adjst of spectacles and contact lenses Oct- 0 Andrea Jon. [address] [place], [place], [id number] , [place]. tel:[phone] Referring Provider: Mateo Mendez, [address] [place], [address] . tel:[phone] [facility], [id number], [id number], [place] tel:[phone] Vision F1 blurry vision (chief complaint) Hypermetropia, bilateralRegular astigmatism, bilateralAsthenopiaH eadache 0 Andrea Galindo. [address] [place], [place], [id number] , . tel: [phone] Referring Provider: Mateo Mendez, [address], [address] . tel:[phone] Family History Family Member Type Diagnosis Age At Onset No Information Payers Payer name Insurance type Covered republican ID Authoriza tidiogo(s) [facility] [id number] Social History Type Description Quantity Date Captured Comments Sex Female Smoking Status No Information Chief Complaint And Reason For Visit No Information Reason For Referral Reason For Referral No Information History Of Present Illness Encounter Date Complaint History Of Prese nt Illness blurry vision pt does not wear glasses. Pt has trouble with reading and driving. PT states 20 min in to either reading or driving she will get headaches behind her eyes. No history of eye disease in family. Pt states more trouble is just depending on what she is looking at either distance or up close. Functional Status Date Functional Assessmen t No Information Instructions Date Instruction Additional Infor [facility]aiser Impression/Plan Assessments Type Assessment Date No Information Patient Care Teams Name Effective Dates (start - stop) Status Members No Information
[2025-02-07 19:26] VITALS: BP 147/73; PULSE 98; RESP 18; TEMP 36.7; O2SAT 97; BMI 38.9
--- NOTE | 2025-02-07 19:30 | ECG_ITS ---
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 Measurements Intervals [place] Rate: 85 P: 40 [place]: 141 QRS: 9 QRSD: 101 T: 40 QT: 360 QTc: 428 Interpretive Statements SINUS RHYTHM WITH OCCASIONAL SUPRAVENTRICULAR PREMATURE COMPLEXES INCOMPLETE RIGHT BUNDLE BRANCH BLOCK [90+ ms QRS DURATION, TERMINAL R IN V1/V2, 40+ ms S IN I/aVL/V4/V5/V6] No previous ECG available for comparison Electronically Signed On 02-11-2025 14:59:40 CDT by Elder Miller M.D. [id number]
--- OUTSIDE RECORDS SUMMARY | 2025-02-07 19:31 | XMS_ITS | Clinical Summary ---
Author Organization [facility] Address [address] [place] [address] Phone Care Team Providers Care Color Drum Worker Name Role Phone Vika Hernandez Primary Care Provider [phone] Allergies No known active allergies Medications vits15/iron/foli c/dss ( VIT 23-HJKF-UJREA-DS S ORAL) Take by mouth. Active Social History Tobacco Use Types Packs/Day Years Used Date Smoking Tobacco: Former Smokeless Tobacco: Never Alcohol Use Standard Drinks/Week Comments Not Currently 0 (1 standard drink = 0.6 oz pur e alcohol) Estimated Date of Delivery Comme nts Yes 05/17/2021 Sex and Gender Information Value Date Recorded Sex Assigned at Not on file Legal Sex Female 9:16 AM CDT Gender Identity Not on file Sexual Orientation Not on file Last Filed Vital Signs Vital Sign Reading Time Taken Comments Blood Pressure 121/71 2021 12:22 PM CDT Pulse - - Temperature 36.7 C (98.1 F) 2021 9:31 AM CDT Respiratory Rate 14 2021 12:22 PM CDT Oxygen Saturation 99% 2021 12:22 PM CDT Inhaled Oxygen Concentration - - Weight 91.8 kg (202 lb 6.4 oz) 2021 9:31 A M CDT Height 162.6 cm (5' 4 ) 2021 9:31 AM CDT Body Mass Index 34.74 2021 9:31 AM CDT Plan of Treatment Health Maintenance Due Date Last Done Comments CHLAMYDIA SCREENING (ANNUAL) 11-24 YEARS 2013 HPV VACCINES (1 - 3-dose series) 2017 DTAP/TDAP/TD VACCINES (1 - Tdap) 2021 HEPATITIS B VACCINES (1 of 3 - 19+ 3-dose series) 03/01 CERVICAL CANCER SCREENING 2023 HPV/Cotest (21-29) 2023 PAP SMEAR 2023 INFLUENZA VACCINE (#1) 2025 RSV VACCINE (60+ or ) (1 - 1-dose 75+ series) 2077 Insurance [employer] [facility] MEDICAID Care Teams Color Drum Worker Relationship Specialty Start Date End Date Vika Hernandez PA [address] [facility] [address] [place] [id number] PCP - General Physician Experimental Preflight Mechanic 03/26/21
--- NOTE | 2025-02-07 19:34 | XRR_ITS ---
PROCEDURE INFORMATION: Exam: XR Chest Exam date and time: 02/07/2025 7:41 PM Age: 24 years old Clinical indication: Pain; Shortness of breath; Chest pressure; C/O cp with SOB TECHNIQUE: Imaging protocol: Radiologic exam of the chest. Views: 1 view. COMPARISON: CT abdomen pelvis w con* [id number] 08/07/2022 12:14 AM FINDINGS: Lungs: Unremarkable. No consolidation. Pleural spaces: Unremarkable. No pleural effusion. No pneumothorax. Heart/Mediastinum: Unremarkable. No cardiomegaly. Bones/joints: Unremarkable. XR/XR chest 1V portable [id number] IMPRESSION: No acute findings.
--- NOTE | 2025-02-07 19:50 | ECG_ITS ---
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 Measurements Intervals [place] Rate: 107 P: 30 [place]: 145 QRS: -1 QRSD: 89 T: 24 QT: 330 QTc: 441 Interpretive Statements SINUS TACHYCARDIA POSSIBLE RIGHT VENTRICULAR CONDUCTION DELAY [RSR (QR) IN V1/V2] MODERATE VOLTAGE CRITERIA FOR LVH, CONSIDER NORMAL VARIANT [MEETS CRITERIA IN ONE OF: R(aVL), S(V1), R(V5), R(V5/V6)+S(V1)] Compared to ECG 02/07/2025 19:30:09 Sinus rhythm no longer present Incomplete right bundle-branch block no longer present Electronically Signed On 02-11-2025 14:59:34 CDT by Elder Miller M.D. [email or web address]
[2025-02-07 20:10] VITALS: RESP 22; O2SAT 98
[2025-02-07] MEDS: ondansetron 2 mg/ML SDV 2 mL 4 MG IVP (20:10)
[2025-02-07] MEDS: morphine 4 mg/mL SDV 1 mL IVP (20:10)
[2025-02-07 20:14] LABS: Hematocrit 40.4 % (36-47); Hemoglobin 13.30 g/dL (11.27-16.99); Mean Corpuscular HGB Conc 32.9 g/dL (30-55); Mean Corpuscular Hemoglobin 30.2 pg (27-33); Mean Corpuscular Volume 91.8 fl (85-98); Nucleated Red Blood Cells % 0 %; Platelet Count 363 10^3/cmm (157-399); Red Blood Count 4.40 10^6/uL (3.85-5.65); White Blood Count 12.83 10^3/uL (3.29-11.43)
[2025-02-07 20:28] LABS: HCG, Serum Qual Positive (Negative)
[2025-02-07 20:37] LABS: Alanine Aminotransferase 45 U/L (0-33); Albumin Level 3.9 g/dL (3.5-5.2); Alkaline Phosphatase 128 U/L (35-105); Anion Gap 22.2 (5-19); Aspartate Amino Transferase 49 U/L (0-32); Blood Urea Nitrogen 7 mg/dL (6-20); Calcium 9.1 mg/dL (8.5-10.5); Carbon Dioxide 19 mmol/L (22-29); Chloride 107 mmol/L (98-107); Creatinine Clr Calc Pharmacy 198.8057; Globulin 2.3 g/dL (1.3-4.6); Glucose 121 mg/dL (65-115); Lipase 14 U/L (13-60); Osmolality Calculated 299 mOsm/kg (285-295); Potassium 3.2 mmol/L (3.5-5.1); Sodium 145 mmol/L (136-145); Total Protein 6.2 g/dL (6.6-8.7); Troponin(5th) Baseline < 6 ng/L (0-10)
--- NOTE | 2025-02-07 20:44 | USR_ITS ---
PROCEDURE INFORMATION: Exam: US Duplex Artery or Vein of the Abdominal and/or Reproductive Organs, Limited Liver Exam date and time: 02/07/2025 10:17 PM Clinical indication: Abdominal pain; Epigastric; ; Additional info: Right upper quadrant pain elevated liver enzymes TECHNIQUE: Imaging protocol: Real-time duplex ultrasound scan of the arterial or venous flow with color Doppler flow and spectral waveform analysis with image documentation. Limited Duplex exam focused on the liver and portal venous system. Duplex exam was performed to evaluate for vascular conditions. COMPARISON: No relevant prior studies available. FINDINGS: Portal venous: Patent. Normal waveforms. Normal hepatopetal (towards the liver) flow. Hepatic artery: Not specifically interrogated. PROCEDURE INFORMATION: Exam: US Abdomen, Limited; Right Upper Quadrant Exam date and time: 02/07/2025 10:17 PM Age: 24 years old Clinical indication: Abdominal pain; Epigastric; ; Additional info: Right upper quadrant pain elevated liver enzymes TECHNIQUE: Imaging protocol: Real time ultrasound of the abdomen with image documentation. Limited exam focused on the right upper quadrant. COMPARISON: US gall bladder [id number] 08/06/2022 11:26 PM FINDINGS: Liver: Normal. No masses. Gallbladder: Possible small amount of dependent layering gallbladder sludge. No gallstones. There is no gallbladder wall thickening. Biliary ducts: Unremarkable. No dilation. Visualized common duct measures 4 mm diameter. Pancreas: Visualized pancreas is unremarkable. Right kidney: Normal. No mass. No hydronephrosis. Measures 10.8 cm in length. Inferior vena cava: Visualized aorta and IVC are unremarkable. US/US gall bladder [id number] IMPRESSION: Unremarkable duplex of the portal vein. IMPRESSION: No acute findings.
--- NOTE | 2025-02-07 20:45 | ED_ITS ---
HPI - Chest Pain 2 General: Chief Complaint: Chest Pain Stated Complaint: SOB woke with cp Time Seen by Provider: 02/07/25 19:45 History of Present Illness: 24-year-old female complaining of back p ain radiating around in a bandlike fashion to her epigastrium, and right greater than left upper quadrant. She states the pain started around 5 PM suddenly. Pain worsens with deep breathing. No vomiting. She is nauseated. Some shortness of breath. She has not had pain like this before. No history of abdominal surgery. She is not believe she is . Related Data Home Medications ?Medication ?Instructions ?Recorded ?Confirmed [id number] 400 mcg-om3 35 mg-dha 25 1 tab PO DAILY 10/0101/09/24 mg-epa 5 mg-fish oil chewable tablet ( Gummy) Previous Rx's ?Medication ?Instructions ?Recorded amoxicillin 875 mg-potassium 1 tab PO BID #14 tabs 06/24 clavulanate 125 mg tablet Allergies Allergy/AdvReac Type Severity Reaction Status Date / Time No Known Allergies Allergy Verified 12/31/23 13:03 [facility] ED 2 PFS: Medical History (Updated 02/07/25 @ 23:31 by Melvin Markham DO) Anxiety used to see [facility] and took several meds that never really worked for her. No pertinent past medical history neghx: htn,dm,thyroid,dvt/pe,herpes ---denies partner with herpes PCP: [facility] Polycystic ovarian syndrome Surgical History S/P tonsillectomy and adenoidectomy Family History Mother Hypertension Grandfather Hypertension Maternal Diabetes Maternal and Paternal Grandmother Hypertension Maternal Colon cancer Maternal dx age---50's Diabetes Maternal and Paternal Thyroid disease Paternal Father No problems noted. Denies family history of Ovarian cancer Heart disease Hypercholesteremia Breast cancer Uterine cancer Stroke Social History Smoking and tobacco/nicotine status: current every day tobacco/nicotine user cigarettes [ Other cigarette details: 1 cigarette/day] Alcohol intake: former Former alcohol use details: 07/31/2020 Substance/Drug Use: former Physical Exam 2 Const: COMMON NORMALS: no acute distress GENERAL APPEARANCE: cooperative; not ill appearing and not frail appearing HENMT: COMMON NORMALS: normocephalic, atraumatic and Normal external nose present HEAD & SCALP: normocephalic and atraumatic FACE & SINUS: normal facial exam and face symmetric NOSE: Normal external nose present Eye: COMMON NORMALS: Equal, round and reactive pupils present and EOMs intact bilaterally PUPIL: Yes Equal, round and reactive pupils present Neck/C-Spine: GENERAL: Yes trachea midline Chest: CHEST: Yes Symmetrical chest wall rise Resp: COMMON NORMALS: normal respiratory effort, No retractions, No use of accessory muscles and clear to auscultation bilaterally AUSCULTATION: clear to auscultation bilaterally Cardio: COMMON NORMALS: regular rate and regular rhythm RATE: regular rate RHYTHM: regular rhythm GI: COMMON NORMALS: Normal to inspection, nondistended, normoactive bowel sounds present PALPATION: Yes Tenderness to palpation present (GI) Details: RUQ and Yes Guarding due to palpation present (GI) Extremity: COMMON NORMALS: no pedal edema Neuro: STEVE COMA SCALE: document GCS findings Steve coma scale eye opening: Spontaneous [place] coma scale verbal response: Orientated [place] coma scale motor response: Obey commands Steve coma scale total score: 15 S ENSORY EXAM: Yes extremities (intact) Psych: COMMON NORMALS: speech normal SPEECH: Yes normal speech Skin: COMMON NORMALS: no rashes or lesions noted GENERAL SKIN EXAM: no rashes or lesions noted Course 2 Vital Signs: Vital signs: Vital Signs Temperature 98.1 F 02/07/25 19:26 Pulse Rate 67 02/08/25 00:27 Respiratory Rate 18 02/07/25 23:02 Blood Pressure 121/103 02/08/25 00:27 Pulse Oximetry 99 02/08/25 00:27 Oxygen Delivery Me thod Room Air 02/07/25 19:26 MDM - Chest Pain Medical Decision Making White blood cell count is 13. No left shift. D-dimer is negative. Troponin is nondetectable. CRP is 7.4. Liver enzymes are slightly elevated. Bilirubin is 0.3. She is positive for by serum testing. Quantitative hCG is pending. Right upper quadrant ultrasound is pending. Right upper quadrant ultrasound is negative. Chest x-ray is negative. Serum quantitative hCG is 763. On reinterview, the patient tells me that she believes she miscarried a few days ago, as she passed blood, clots, and tissue. She is still bleeding, although the bleeding is slowing. She has no fever. She does have a significant urinary tract infection. She is positive for opiates, amphetamines, and marijuana. Opiate screen likely positive due to morphine she was given here. She is given IV Rocephin for the UTI. She will be covered with Augmentin. She is to return for worsening pain, brisk vaginal bleeding, fever despite antibiotics, other concerning symptoms. She is instructed to call her primary care physician on Monday, as her quantitative hCG needs to be followed to 0 as retained products would be in the differential at this point. Lab Data 02/07/25 20:08 02/07/25 20:08 Radiology Impressions Chest X-Ray 02/07/25 19:34 IMPRESSION: No acute findings. Gallbladder Ultrasound 02/07/25 20:44 IMPRESSION: Unremarkable duplex of the portal vein. IMPRESSION: No acute findings. Laboratory Results WBC 12.83 10^3/uL (3.29-11.43) H 02/07/25 20:08 RBC 4.40 10^6/uL (3.85-5.65) 02/07/25 20:08 Hgb 13.30 g/dL (11.27-16.99) 02/07/25 20:08 Hct 40.4 % (36-47) 02/07/25 20:08 MCV 91.8 fl (85-98) 02/07/25 20:08 MCH 30.2 pg (27-33) 02/07/25 20:08 MCHC 32.9 g/dL (30-55) 02/07/25 20:08 RDW 13.2 % (12.1-15.1) 02/07/25 20:08 Plt Count 363 10^3/cmm (157-399) 02/07/25 20:08 MPV 9.4 fL (7.4-10.4) 02/07/25 20:08 Neut % (Auto) 61.6 % 02/07/25 20:08 Lymph % (Auto) 30.6 % 02/07/25 20:08 [place] % (Auto) 4.7 % 02/07/25 20:08 Eos % (Auto) 2.3 % 02/07/25 20:08 Baso % (Auto) 0.6 % 02/07/25 20:08 Neut # (Auto) 7.91 10^3/uL (1.8-7.7) H 02/07/25 20:08 Lymph # (Auto) 3.9 10^3/uL (0.8-4.8) 02/07/25 20:08 [place] # (Auto) 0.6 10^3/uL (0.2-0.9) 02/07/25 20:08 Eos # (Auto) 0.3 10^3/uL (0.0-0.8) 02/07/25 20:08 Baso # (Auto) 0.1 10^3/uL (0.0-0.1) 02/07/25 20:08 Nucleated RBC % (auto) 0 % 02/07/25 20:08 Nucleated RBCs # 0.0 /100WBC 02/07/25 20:08 D-Dimer 0.28 ug/mLFEU (0-0.59) 02/07/25 20:08 Sodium 145 mmol/L (136-145) 02/07/25 20:08 Potassium 3.2 mmol/L (3.5-5.1) L 02/07/25 20:08 Chloride 107 mmol/L (98-107) 02/07/25 20:08 Carbon Dioxide 19 mmol/L (22-29) L 02/07/25 20:08 Anion Gap 22.2 (5-19) H 02/07/25 20:08 BUN 7 mg/dL (6-20) 02/07/25 20:08 Creatinine 0.5 mg/dL (0.5-0.9) 02/07/25 20:08 GFR Calculation 154.3 mL/min (90-130) H 02/07/25 20:08 Glucose 121 mg/dL (65-115) H 02/07/25 20:08 Calculated Osmolality 299 mOsm/kg (285-295) H 02/07/25 20:08 Calcium 9.1 mg/dL (8.5-10.5) 02/07/25 20:08 Total Bilirubin 0.3 mg/dL (0.15-1.2) 02/07/25 20:08 AST 49 U/L (0-32) H 02/07/25 20:08 ALT 45 U/L (0-33) H 02/07/25 20:08 Alkaline Phosphatase 128 U/L (35-105) H 02/07/25 20:08 Troponin T Baseline < 6 ng/L (0-10) 02/07/25 20:08 Troponin T 120 Minute < 6.0 ng/L (0-10) 02/07/25 21:38 Delta Troponin T 0 ABS# (0-10) 02/07/25 21:38 C-Reactive Protein 7.4 mg/L (0.0-4.9) H 02/07/25 20:08 Total Protein 6.2 g/dL (6.6-8.7) L 02/07/25 20:08 Albumin 3.9 g/dL (3.5-5.2) 02/07/25 20:08 Globulin 2.3 g/dL (1.3-4.6) 02/07/25 20:08 Lipase 14 U/L (13-60) 02/07/25 20:08 HCG, Qual Positive (Negative) H 02/07/25 20:08 Ser , Semi-Qnt 762.80 mIU/mL 02/07/25 21:38 Urine Color Yellow (Yellow) 02/07/25 20:53 Urine Appearance Cloudy (CLEAR) A 02/07/25 20:53 Urine pH 6.0 (5-7) 02/07/25 20:53 Ur Specific [place] 1.019 (1.005-1.030) 02/07/25 20:53 Urine Protein Trace (Negative) A 02/07/25 20:53 Urine Glucose (UA) Negative (Normal) 02/07/25 20:53 Urine Ketones Negative (Negative) 02/07/25 20: Urine Blood 3+ (Negative) A 02/07/25 20:53 Urine Nitrate Positive (Negative) A 02/07/25 20:53 Urine Bilirubin Negative (Negative) 02/07/25 20:53 Urine Urobilinogen 1.0 mg/dL (Negative) 02/07/25 20:53 Ur Leukocyte Esterase 2+ (Negative) A 02/07/25 20:53 Urine RBC 3-5 /hpf (0-2) 02/07/25 20:53 Urine WBC 21-50 /hpf (0-5) H 02/07/25 20:53 Ur Squamous Epith Cells 11-20 /hpf (0-5) H 02/07/25 20:53 Amorphous Sediment Not Reportable 02/07/25 20:53 Urine Bacteria 4+ /hpf (NONE) H 02/07/25 20:53 Hyaline Casts 2.05 /lpf 02/07/25 20:53 Urine Opiates Screen Positive ng/mL (Negative) H 02/07/25 20:53 Ur Barbiturates Screen Negative ng/mL (Negative) 02/07/25 20:53 Ur Phencyclidine Scrn Negative ng/mL (Negative) 02/07/25 20:53 Ur Amphetamines Screen Positive ng/mL (Negative) H 02/07/25 20:53 U Benzodiazepines Scrn Negative ng/mL (Negative) 02/07/25 20:53 Urine Cocaine Screen Negative ng/mL (Negative) 02/07/25 20:53 U Marijuana (THC) Screen Positive ng/mL (Negative) H 02/07/25 20:53 Influenza A (PCR) Negative (Negative) 02/07/25 19:54 Influenza Type B (PCR) Negative (Negative) 02/07/25 19:54 RSV (PCR) Negative (Negative) 02/07/25 19:54 SARS-CoV-2 (PCR) Negative (Negative) 02/07/25 19:54 All radiology interpretation(s) finalized by discharge Discharge Plan Discharge Patient Disposition: Home Clinical Impression: Missed UTI (urinary tract infection) Qualifiers: Urinary tract infection type: acute cystitis Condition: Stable Prescriptions: New amoxicillin-pot clavulanate 875-125 mg tablet 1 tab PO BID Qty: 14 0RF No Action Gummy 400 mcg-35 mg -25 mg-5 mg tablet,chewable 1 tab PO DAILY Discharge Orders: Discharge ED (Routine); Ordered 02/07/25 Ordered By: Melvin Markham Referrals: Margaux Shaw MD [Primary Care Provider, Family Practice] - 1-3 days Patient Instructions: Miscarriage (ED), Urinary Tract Infection in Women (ED), Opioid Safety, Pain Management, Patient Portal & Stephanie Instructions Activity Restrictions/Additional Instructions: Antibiotics as directed. Return immediately for fever greater than 100 despite 2-3 doses of antibiotics, worsening pain despite treatment, worsening bleeding, as we discussed, any other concerning symptoms. Call your doctor on Monday. You need to have your blood redrawn to ensure that your quantitative test number is coming down appropriately. You should also have your urine retested to make sure you are clearing the infection. Stand Alone Forms: Work/School Release Print Language: Romansh Coding Level of Care Code ED Nursery Technician for Eric Goode
[2025-02-07 20:57] VITALS: BP 121/03; PULSE 84; RESP 24; O2SAT 96
[2025-02-07 21:06] LABS: Glucose Urine UA Negative (Normal); Nitrate Urine Positive (Negative); Specific Gravity, Urine 1.019 (1.005-1.030)
[2025-02-07 21:08] LABS: Add Urine Microscopic? YES
[2025-02-07 21:17] LABS: Respiratory Syncytial Virus Ce NEGATIVE (Negative); SARS-CoV-2 PCR NEGATIVE (Negative)
[2025-02-07 21:33] LABS: UA Slide Review UA Slide Review Perf
[2025-02-07 21:55] LABS: PCP Screen Urine Negative (Negative)
[2025-02-07 22:26] LABS: Troponin 5 2HR < 6.0 ng/L (0-10); Troponin 5 2HR Delta 0 ABS# (0-10)
--- NOTE | 2025-02-07 22:40 | ECG_ITS ---
[facility]25[facility]02[facility]07 Pat Name: Simona Dubose Department: Room: Gender: Female Telecommunicator: : 2000 Requested By: Melvin Ma Order Number: [id number] Manuel MD: Jerome Andrade M.D. Measurements Intervals [place] Rate: 59 P: 28 MS: 149 QRS: 3 QRSD: 98 T: 23 QT: 429 QTc: 426 Interpretive Statements SINUS BRADYCARDIA WITH MARKED SINUS ARRHYTHMIA Compared to ECG 02/07/2025 19:50:23 Sinus tachycardia no longer present Electronically Signed On 02-12-2025 00:35:23 CDT by Jerome Andrade M.D. [email or web address]
[2025-02-07] MEDS: metoclopramide 5 mg/mL SDV 2 mL 10 MG IVP (22:58)
[2025-02-07] MEDS: cefTRIAXone 1,000 mg SDV 1000 MG IVP (22:59)
[2025-02-07 23:02] VITALS: BP 121/103; PULSE 74; RESP 18; O2SAT 98
[2025-02-08 00:27] VITALS: BP 121/103; PULSE 67; O2SAT 99
== END 2025-02-08 00:29 | disposition home or self-care (01) ==
PROVIDERS: Emergency Medicine; Emergency Provider Emergency Medicine; PCP Family Medicine
DX: N30.00 Acute cystitis without hematuria (principal); F17.210 Nicotine dependence, cigarettes, uncomplicated; Z11.52 Encounter for screening for COVID-19
CPT/HCPCS: 36415; 71045; 76705; 80053; 80306; 81001; 83690; 84484; 84702; 84703; 85025; 85378; 86140; 87637; 93005; 96374; 96375; 99285; J0696; J1885; J2270; J2405; J2765; J7030